=== PATIENT | female | born 1940 | race Caucasian/White ===

== ENCOUNTER 2022-07-12 14:13 | Outpatient (RCR) | payer OTHER, SELFPAY ==
--- NOTE | 2022-07-12 16:24 | PTOPEVDC ---
Assessment and note entered by Ramiro Jeong, PT Thank you for referring Phuong Ruff to [facility].? An evaluation has been completed. No further treatment is needed. Evaluation Information Assessment Status Evaluation Diagnosis Myofascial pain Onset Chronic, but much worse in the last year Subjective Information Patient reports having a bad back with chronic pain for many years, but about the last year the pain appears to be everywhere. She has a past medical history of scoliosis. She reports no specific aggravating activities, just that the pain is there. The patient was given a sleeping pill by the doctor, but does not recall the name of it. Reported Pain Level Pain Score 5: Self Report Assessment PT Clinical Summary Phuong is an 82 year old female with a diagnosis of myofascial pain. She has significant scoliosis in the lower thoracic upper lumbar area along with weakness in the scapular muscles and tenderness over the L shoulder bicipital groove. Talking to the patient I think we can work on the scapular muscles which should help the shoulders feel better, but would not be able to state that the back could get sigificantly better, which she suspected. Patient elects for a HEP of the shoulders and if she see significant improvements will ask doctor for another evaluation to check on other areas of the body. Plan of Care PT Services Indicated No Treatment Frequency and discharged from skilled physical therapy with HEP Duration
--- NOTE | 2022-07-12 16:24 | PTOPEVDC ---
Assessment and note entered by Ramiro Jeong, PT Thank you for referring Phuong Ruff to [facility].? An evaluation has been completed. No further treatment is needed. Evaluation Information Assessment Status Evaluation Diagnosis Myofascial pain Onset Chronic, but much worse in the last year Subjective Information Patient reports having a bad back with chronic pain for many years, but about the last year the pain appears to be everywhere. She has a past medical history of scoliosis. She reports no specific aggravating activities, just that the pain is there. The patient was given a sleeping pill by the doctor, but does not recall the name of it. Reported Pain Level Pain Score 5: Self Report Assessment PT Clinical Summary Phuong is an 82 year old female with a diagnosis of myofascial pain. She has significant scoliosis in the lower thoracic upper lumbar area along with weakness in the scapular muscles and tenderness over the L shoulder bicipital groove. Talking to the patient I think we can work on the scapular muscles which should help the shoulders feel better, but would not be able to state that the back could get significantly better, which she suspected. Patient elects for a HEP of the shoulders and if she see significant improvements will ask doctor for another evaluation to check on other areas of the body. Plan of Care PT Services Indicated No Treatment Frequency and discharged from skilled physical therapy with HEP Duration
== END 2022-07-12 17:17 | disposition home or self-care (01) ==
LOC: ANHPT 14:13
PROVIDERS: PCP Internal Medicine Geriatric Medicine; Visit Provider Internal Medicine Geriatric Medicine
DX: M79.18 Myalgia, other site (principal)
CPT/HCPCS: 97110; 97161